=== PATIENT | female | born 1945 | race Two or more races ===

== ENCOUNTER 2019-05-18 13:25 | Outpatient (CLI) | payer MEDICARE, MEDICAID ==
--- NOTE | 2019-05-27 16:45 | Consultation ---
DATE OF CONSULTATION: 05/18/2019 CONSULTING PHYSICIAN: Mk Still M.D. REFERRING PHYSICIAN: Dr. Dorsey CHIEF COMPLAINT: Constipation and GERD. HISTORY OF PRESENT ILLNESS: This is a very pleasant 73-year-old female with multiple medical problems, which I will dictate in a second, who was referred to us for evaluation of the constipation and GERD. Last colonoscopy for the patient was in 2016. Never had endoscopy before. PAST MEDICAL HISTORY: 1. Hypertension. 2. Diabetes. 3. Hypercholesterolemia. 4. Hypothyroidism. 5. Coronary artery disease and stent placement. 6. Arthritis. PAST SURGICAL HISTORY: Cardiac catheterization. MEDICATIONS: Please see medication reconciliation list. FAMILY HISTORY: No family history of GI malignancies. SOCIAL HISTORY: The patient denies any tobacco, alcohol, or illicit drug abuse. ALLERGIES: Penicillin and clarithromycin. REVIEW OF SYSTEMS: A 10-point review of systems was performed and positive for chronic GERD and constipation. PHYSICAL EXAMINATION: GENERAL: This is a well-developed female in no acute distress. HEENT: Normocephalic, atraumatic. Sclerae anicteric NECK: Supple. No evidence of obvious lymphadenopathy. CARDIOVASCULAR: Regular rhythm. Plus S1 and S2. No obvious murmur. LUNGS: Clear to auscultation bilaterally. ABDOMEN: Positive bowel sounds. Soft and nontender. No rebound. No guarding. No peritoneal sign. EXTREMITIES: No cyanosis, no clubbing, no edema. ASSESSMENT AND PLAN: This is a very pleasant 73-year-old female with chronic constipation. Last colonoscopy per the patient 2016. Unfortunately, I do not have the report of the colonoscopy. I told the patient please bring in a copy, so we can review it to see when is the next colonoscopy for her. Meanwhile according to her symptoms, she states that she might have some symptoms of SIBO, small intestinal bacterial overgrowth. For that, we are going to start her on Xifaxan 550 mg p.o. t.i.d. for 14 days. The patient also has chronic constipation for which we are going to start Trulance 3 mg daily. The patient to come back for follow up in 1 month with the report of colonoscopy and we are going to follow to see if the Trulance and Xifaxan help her symptoms. I want to thank Dr. Dorsey for this kind referral. Mk Still M.D. DR: ANUEL JOB#: [id number] CC: Dr. Dorsey
== END 2019-05-18 15:33 | disposition home or self-care (01) ==
LOC: PAN 13:25
DX: K59.00 Constipation, unspecified (principal); K21.9 Gastro-esophageal reflux disease without esophagitis; E11.9 Type 2 diabetes mellitus without complications; I10 Essential (primary) hypertension; E78.00 Pure hypercholesterolemia, unspecified; E03.9 Hypothyroidism, unspecified; I25.10 Atherosclerotic heart disease of native coronary artery without angina pectoris; Z95.5 Presence of coronary angioplasty implant and graft; M19.90 Unspecified osteoarthritis, unspecified site; Z88.0 Allergy status to penicillin
CPT/HCPCS: 99202

== ENCOUNTER 2019-06-23 12:44 | Outpatient (CLI) | payer MEDICARE, MEDICAID ==
--- NOTE | 2019-06-23 13:17 | General Progress Note ---
Assessment/Plan Problem List: (1) Constipation ICD Codes: K59.00 - Constipation, unspecified SNOMED: 87146436 (2) GERD (gastroesophageal reflux disease) ICD Codes: K21.9 - Gastro-esophageal reflux disease without esophagitis SNOMED: 487426718 (3) Obesity ICD Codes: E66.9 - Obesity, unspecified SNOMED: 464307945, 288080535 (4) CAD (coronary artery disease) ICD Codes: I25.10 - Atherosclerotic heart disease of [place] coronary artery without angina pectoris SNOMED: 92158165 (5) Diabetes ICD Codes: E11.9 - Type 2 diabetes mellitus without complications SNOMED: 45764825 Assessment/Plan: no response to trulance patient never received Xifaxan trial of linzess 290 add omeprazole patient to bring her last colonoscopy report per giselle 2016 RTC 3 months Subjective ROS Limited/Unobtainable: Yes Allergies: Coded Allergies: AMOXICILLIN (Verified Allergy, Unknown, 05/26/19) CLARITHROMYCIN (Verified Allergy, Unknown, 05/26/19) Objective General Appearance: alert EENT: normal ENT inspection Neck: supple Cardiovascular: normal rate Respiratory/Chest: lungs clear Abdomen: normal bowel sounds, non tender, soft Extremities: non-tender Mk Still MD Jun 23, 2019 13:17
[2019-06-23] MEDS ORDERED: LEVOTHYROXINE75 MCG ORAL (14:53)
[2019-06-23] MEDS ORDERED: CARVEDILOL12.5 MG ORAL (14:53)
[2019-06-23] MEDS ORDERED: LOSARTAN POTASS50 MG ORAL (14:53)
[2019-06-23] MEDS ORDERED: AMLODIPINE BESYL5 MG ORAL (14:53)
[2019-06-23] MEDS ORDERED: SPIRONOLACTONE25 MG ORAL (14:53)
[2019-06-23] MEDS ORDERED: METOCLOPRA10 MG/10 M ORAL (14:53)
[2019-06-23] MEDS ORDERED: NOVOLIN R100 UNIT/1 SUBQ (14:53)
[2019-06-23] MEDS ORDERED: ASPIRIN EC81 MG ORAL (14:53)
[2019-06-23] MEDS ORDERED: PLAVIX75 MG ORAL (14:53)
[2019-06-23] MEDS ORDERED: ZANTAC150 MG ORAL (14:53)
[2019-06-23] MEDS ORDERED: ISOSORBIDE MONO20 MG PO (14:53)
[2019-06-23] MEDS ORDERED: PRAVASTATIN SOD20 M1 ORAL (14:53)
[2019-06-23] MEDS ORDERED: FUROSEMIDE40 MG ORAL (14:53)
[2019-06-23] MEDS ORDERED: LANTUS SOL100 UNIT/1 SUBQ (14:53)
[2019-06-23] MEDS ORDERED: VENTOLIN HFA18 GM INH (14:53)
[2019-06-23] MEDS ORDERED: MONTELUKAST SOD10 MG ORAL (14:53)
[2019-06-23 14:54] VITALS: BP 135/54
== END 2019-06-23 14:44 | disposition home or self-care (01) ==
LOC: PAN 12:44
DX: K59.00 Constipation, unspecified (principal); K21.9 Gastro-esophageal reflux disease without esophagitis; E66.9 Obesity, unspecified; I25.10 Atherosclerotic heart disease of native coronary artery without angina pectoris; E11.9 Type 2 diabetes mellitus without complications; Z88.0 Allergy status to penicillin; Z88.8 Allergy status to other drugs, medicaments and biological substances
CPT/HCPCS: 99212